=== PATIENT | male | born 1995 | race Caucasian/White ===

== ENCOUNTER 2016-07-03 19:39 | Emergency (ER) | payer OTHER ==
[~2016-07-03] VITALS: Ht 177.8 cm; Wt 63.6 kg
[2016-07-03] MEDS ORDERED: SODIUM CHLORID 0.9% 500 ML INJ 500 ML IV ONE ×2 (19:45→21:45)
[2016-07-03] MEDS ORDERED: SODIUM CHLOR 0.9% 1000 ML INJ 1,000 ML IV SCH (19:45)
[2016-07-03] MEDS ORDERED: SODIUM CHLORIDE 0.9% FLUSH 10 ML FLUSH IVF PRN (19:45)
[2016-07-03 19:49] VITALS: BP 163/98; PULSE 111; RESP 20; TEMP 99; O2SAT 100
[2016-07-03 19:53] VITALS: BP 165/100; PULSE 107; RESP 20; O2SAT 100
[2016-07-03] MEDS ORDERED: OMEP40CA2 PO (19:57)
--- NOTE | 2016-07-03 20:04 | PD ---
HPI Chief Complaint: palptations Time Seen by Provider: 19:44 Travel History International Travel<30 days: No Contact w/Intl Traveler<30days: No Traveled to known affect area: No History of Present Illness HPI 20-year-old male presents to the emergency department by EMS transport from local restaurant for evaluation of palpitations and not feeling well. Patient has history of neurofibromatosis type II. Patient reports that he does have some tumors that have been monitored in the left neck and right anterior neck regions. Patient reports that tumors being monitored as they are in regions that reportedly may affect his heart rate. Patient states this is never happened. Patient also has right sided anterior cervical nodules that sometimes affects his swallowing but had no issues with swallowing today. No change in phonation. No syncope or near syncope. Patient states he ate lunch and still felt poorly so went to the restaurant to have some coffee and a sandwich and started noticing that his heart was beating faster, felt "funny", and hands became cold and mildly tremulous; this has now resolved. Friends called paramedics. Patient denies any headache visual disturbance disturbance balance disturbance difficulty with speech difficulty with swallowing chest pain shortness of breath pleuritic chest pain abdominal pain experienced some nausea no vomiting no flank pain no back pain no jaw pain shoulder arm pain. No report of dietary indiscretion well water ingestion or foreign travel. Patient's had no recent febrile illness. No recent antibiotic use. Patient reports he completed a course of steroids one week ago for an episode of idiopathic urticaria. Patient takes omeprazole daily but no other prescription medications. Patient does not smoke cigarettes drink alcohol or use substances. Patient is here for one week with his school from [facility] patient is scheduled to return home tomorrow. Paramedics report that EKG showed no acute abnormality patient reportedly had a systolic pressure 170 mmHg on scene. No prior history of blood pressure elevation. Patient reports that he feels improved at this time; paramedics noted that he had decreased rate of his tachycardia once in the EMS unit. Patient denies other concerns or complaints. PFSH Past Medical History Narrative Medical Neurofibromatosis type II, acoustic neuroma, left hearing aid, gamma knife radiation therapy, knee surgery; no tobacco use alcohol use no substance use; nursing notes reviewed. Social History Tobacco Use: No Allergies-Medications (Allergen,Severity, Reaction): Coded Allergies: Amoxil (Verified Allergy, Unknown, 07/03/16) Reported Meds & Prescriptions Reported Meds & Active Scripts Active Reported Omeprazole 40 Mg Cap 40 Mg PO DAILY Narrative Medication Omeprazole Review of Systems Except as stated in HPI: all other systems reviewed are Neg General / Constitutional: No: Fever, Chills Eyes: No: Visual changes HENT: Positive: Lightheadedness, No: Headaches, Neck Stiffness, Neck Pain Cardiovascular: Positive: Palpitations, No: Chest Pain or Discomfort Respiratory: No: Shortness of Breath Gastrointestinal: No: Vomiting, Diarrhea, Abdominal Pain Genitourinary: No: Decreased Urinary Output Musculoskeletal: No: Myalgias, Arthralgias, Edema Skin: No Rash Neurologic: No: Weakness, Dizziness, Syncope, Focal Abnormalities, Coordination Problem Psychiatric: Positive: Anxiety Endocrine: No: Heat Intolerance Hematologic/Lymphatic: No: Easy Bruising Physical Exam Narrative GENERAL: Well-developed well-nourished male in no acute distress no respiratory distress; GCS 15; heart rate 113 sinus tachycardia on j2ee developer room air O2 saturation 98% blood pressure 165/100 RR 18 nonlabored Temp 99F SKIN: Warm and dry. HEAD: Atraumatic. Normocephalic. EYES: Pupils equal and round. No scleral icterus. No injection or drainage. ENT: No nasal bleeding or discharge. Mucous membranes pink and moist. NECK: Trachea midline. No JVD. CARDIOVASCULAR: Regular rate and rhythm. RESPIRATORY: No accessory muscle use. Clear to auscultation. Breath sounds equal bilaterally. GASTROINTESTINAL: Abdomen soft, non-tender, nondistended. Hepatic and splenic margins not palpable. MUSCULOSKELETAL: Extremities without clubbing, cyanosis, or edema. No obvious deformities. NEUROLOGICAL: Awake and alert. No obvious cranial nerve deficits. Motor grossly within normal limits. Five out of 5 muscle strength in the arms and legs. Normal speech. PSYCHIATRIC: Appropriate mood and affect; insight and judgment normal. Data Data Last Documented VS Vital Signs Date Time Temp Pulse Resp B/P Pulse Ox O2 Delivery O2 Flow Rate FiO2 07/03/16 20:14 110 18 157/88 99 Room Air 07/03/16 19:49 99.0 Orders Electrocardiogram (07/03/16 19:44) Basic Metabolic Panel (Bmp) (07/03/16 19:44) Complete Blood Count With Diff (07/03/16 19:44) Magnesium (Mg) (07/03/16 19:44) Chest, Single Ap (07/03/16 19:44) Blood Glucose (07/03/16 19:44) Ecg Monitoring (07/03/16 19:44) Iv Access Insert/Monitor (07/03/16 19:44) Oximetry (07/03/16 19:44) Sodium Chloride 0.9% Flush (Ns Flush) (07/03/16 19:45) Sodium Chlorid 0.9% 500 Ml Inj (Ns 500 M (07/03/16 19:45) Sodium Chlor 0.9% 1000 Ml Inj (Ns 1000 M (07/03/16 19:45) Drug Screen, Random Urine (07/03/16 20:05) Sodium Chlorid 0.9% 500 Ml Inj (Ns 500 M (07/03/16 21:45) Urinalysis - C+S If Indicated (07/03/16 21:38) Alcohol (Ethanol) (07/03/16 21:38) D-Dimer (07/03/16 21:38) Labs Laboratory Tests Test 07/03/16 07/03/16 07/03/16 20:00 21:40 21:45 White Blood Count 8.3 TH/MM3 Red Blood Count 4.61 MIL/MM3 Hemoglobin 14.0 GM/DL Hematocrit 40.0 % Mean Corpuscular Volume 86.9 FL Mean Corpuscular Hemoglobin 30.3 PG Mean Corpuscular Hemoglobin 34.9 % Concent Red Cell Distribution Width 13.4 % Platelet Count 245 TH/MM3 Mean Platelet Volume 7.6 FL Neutrophils (%) (Auto) 63.5 % Lymphocytes (%) (Auto) 23.6 % Monocytes (%) (Auto) 10.4 % Eosinophils (%) (Auto) 2.0 % Basophils (%) (Auto) 0.5 % Neutrophils # (Auto) 5.3 TH/MM3 Lymphocytes # (Auto) 2.0 TH/MM3 Monocytes # (Auto) 0.9 TH/MM3 Eosinophils # (Auto) 0.2 TH/MM3 Basophils # (Auto) 0.0 TH/MM3 CBC Comment DIFF FINAL Differential Comment Sodium Level 140 MEQ/L Potassium Level 4.1 MEQ/L Chloride Level 104 MEQ/L Carbon Dioxide Level 27.1 MEQ/L Anion Gap 9 MEQ/L Blood Urea Nitrogen 15 MG/DL Creatinine 1.05 MG/DL Estimat Glomerular Filtration 90 ML/MIN Rate Random Glucose 146 MG/DL Calcium Level 8.4 MG/DL Magnesium Level 1.7 MG/DL Ethyl Alcohol Level LESS THAN 3 MG/DL Urine Color YELLOW Urine Turbidity CLEAR Urine pH 6.5 Urine Specific [place] 1.019 Urine Protein NEG mg/dL Urine Glucose (UA) NEG mg/dL Urine Ketones NEG mg/dL Urine Occult Blood NEG Urine Nitrite NEG Urine Bilirubin NEG Urine Urobilinogen LESS THAN 2.0 MG/DL Urine Leukocyte Esterase NEG Urine RBC LESS THAN 1 /hpf Urine WBC LESS THAN 1 /hpf Microscopic Urinalysis Comment CULT NOT INDICATED Urine Opiates Screen NEG Urine Barbiturates Screen NEG Urine Amphetamines Screen NEG Urine Benzodiazepines Screen NEG Urine Cocaine Screen NEG Urine Cannabinoids Screen NEG D-Dimer Quantitative (PE/DVT) 0.20 MG/L FEU [facility] Medical Decision Making Medical Screen Exam Complete: Yes Emergency Medical Condition: Yes Medical Record Reviewed: Yes Interpretation(s) EKG: Sinus tachycardia rate [address] elevation or ectopy noted Chest x-ray: No acute abnormality CBC with automated differential: Values in normal range except for mild monocytosis 10% Metabolic panel grossly within normal limits Serum alcohol less than 3, not elevated; acetaminophen less than 2, not elevated ; salicylate level less than 1.7, not elevated Urine drug screen negative D-dimer 0.2, not elevated Urinalysis: Values grossly normal range Last Impressions Chest X-Ray 07/03/161943 Signed Impressions: Service Date/Time: Sunday, July 03, 2016 20:04 - CONCLUSION: No acute disease. Nehemias Beck MD CBC & BMP Diagram 07/03/16 20:00 Vital Signs Date Time Temp Pulse Resp B/P Pulse Ox O2 Delivery O2 Flow Rate FiO2 07/03/16 20:14 110 18 157/88 99 Room Air 07/03/16 19:53 107 20 165/100 100 Room Air 07/03/16 19:49 99.0 111 20 163/98 100 Differential Diagnosis Palpitations, arrhythmia, electrolyte disturbance, dehydration, febrile illness , viral syndrome/sepsis, PE Narrative Course Well-developed well-nourished male in no acute distress no respiratory distress with mild sinus tachycardia and elevated blood pressure voicing no concerns or complaints at this time after episode of feeling tremulous and noted to have complaint of palpitations with monitored sinus tachycardia by EMS; patient with history of neurofibromatosis type II with nodularity in the left neck and right anterior neck region otherwise no complaints or changes at this time. Plan will be to obtain a specimens to evaluate CBC electrolytes renal function EKG obtained and chest x-ray may require further diagnostics and imaging @ 8:15 patient now reports mild focal localized drainage at left nipple piercing that has subsequently resolved no fever and no tenderness or drainage at this time. @ 10:45 PM HR:90, BP: 137/70 RA O 2 sat: 98%; labs resulted and found to be all grossly within normal range; patient is comfortable symptoms have resolved taking oral hydration well and appears stable for outpatient management and return home as scheduled tomorrow. Sepsis Criteria SIRS Criteria (2 or more): Heart rate over 90 Diagnosis Primary Impression: Heart palpitations Referrals: Primary Care Physician 2 days Patient Instructions: General Instructions Additional Instructions: Increase fluid hydration Follow-up with primary care provider Monitor temperature for fever take as needed acetaminophen/Tylenol or ibuprofen/ Motrin/Advil per package instructions Return to the emergency department for any concerns or change in condition Carito Mack MD July 03, 2016 20:03
[2016-07-03 20:14] VITALS: BP 157/88; PULSE 110; RESP 18; O2SAT 99
[2016-07-03 20:17] LABS: AUTOMATED NEUTROPHIL # 5.3 TH/MM3 (1.8-7.7); BASOPHIL % 0.5 % (0.0-2.0); EOSINOPHIL # 0.2 TH/MM3 (0-0.4); HEMO FLAGS DIFF FINAL; LYMPH % 23.6 % (9.0-44.0); MEAN CELL VOLUME 86.9 FL (80.0-100.0); MEAN CORPUSCULAR HEMOGLOBIN 30.3 PG (27.0-34.0); MEAN CORPUSCULAR HGB CONC 34.9 % (32.0-36.0); MONO % 10.4 % (0.0-8.0); NEUT % 63.5 % (16.0-70.0); PLATELET COUNT 245 TH/MM3 (150-450); RED BLOOD COUNT 4.61 MIL/MM3 (4.50-5.90); RED CELL DISTRIBUTION WIDTH 13.4 % (11.6-17.2); WHITE BLOOD COUNT 8.3 TH/MM3 (4.0-11.0)
--- NOTE | 2016-07-03 20:33 | RADRPT ---
EXAM DATE/TIME: 07/03/2016 20:04 [facility] COMPARISON: No previous studies available for comparison. INDICATIONS : Rapid heart rate MEDICAL HISTORY : None. SURGICAL HISTORY : None. ENCOUNTER: Initial ACUITY: 1 day PAIN SCORE: 0/10 LOCATION: Bilateral chest FINDINGS: A single view of the chest demonstrates the lungs to be symmetrically aerated without evidence of mas s, infiltrate or effusion. The cardiomediastinal contours are unremarkable. Osseous structures are intact. CONCLUSION: No acute disease. Nehemias Beck MD on July 03, 2016 at 20:30 Board Certified Radiologist. This report was verified electronically.
[2016-07-03 21:02] LABS: BICARBONATE 27.1 MEQ/L (21.0-32.0); MAGNESIUM 1.7 MG/DL (1.5-2.5)
[2016-07-03 21:11] LABS: POTASSIUM 4.1 MEQ/L (3.5-5.1)
[2016-07-03 22:04] LABS: BLOOD, URINE NEG (NEG); GLUCOSE,URINE NEG (NEG); KETONE, URINE NEG (NEG); NITRITE,URINE NEG (NEG); PH, URINE 6.5 (5.0-8.5); URINE COLOR YELLOW (YELLW/STRAW)
[2016-07-03 22:06] LABS: COMMENT (UR) CULT NOT INDICATED; CULTURE IF INDICATED CULT NOT INDICATED
[2016-07-03 22:11] LABS: AMPHETAMINE, URINE NEG (NEG); BARBITURATES, URINE NEG (NEG); COCAINE, URINE NEG (NEG)
[2016-07-03 22:47] VITALS: BP 137/77; PULSE 85; RESP 16; O2SAT 98
--- NOTE | 2016-07-04 15:36 | EKG ---
Date Performed: 07/03/2016 Time Performed: 19:50:58 PTAGE: 20 years EKG: SINUS TACHYCARDIA POSSIBLE LEFT ATRIAL ENLARGEMENT Nonspecific ST-T wave changes. ABNORMAL RHYTHM ECG NO PREVIOUS TRACING DOCTOR: Joya Beltran Interpretating Date/Time 07/04/2016 15:35:20
== END 2016-07-03 23:09 | disposition home or self-care (01) ==
LOC: NEPC 19:39
DX: R00.2 Palpitations (principal); Q85.02 Neurofibromatosis, type 2; R42 Dizziness and giddiness; R00.0 Tachycardia, unspecified
CPT/HCPCS: 71010; 80048; 80307; 81001; 83735; 85025; 85379; 93005; 96360; 96361; 99285; J7030; J7040